=== PATIENT | female | born 1955 | race Caucasian/White ===

== ENCOUNTER 2019-01-21 21:28 | Emergency (ER) | payer OTHER ==
[2019-01-21 21:49] VITALS: BMI 29.4
--- NOTE | 2019-01-21 22:04 | PDOC ---
History of Present Illness - General Chief Complaint: Bite Stated Complaint: FEVER/ANIMAL BITE Time Seen by Provider: 01/21/19 22:04 History Source: Patient - History of Present Illness Initial Comments: 01/21/19 22:23 Chief complaint: Cough Patient is a healthy 63-year-old female who was bitten by her own cat 3 days ago. She was bitten to the right hand. She states that her cat appears well, does not go out and patient started taking penicillin she had in the house. Patient states that the hand has not gotten worse but today she noticed she had a fever.she has no other complaints and she took Motrin 2-1/2 hours ago. Tetanus is up-to-date GENERAL/CONSTITUTIONAL: No fever, weakness. dizziness HEAD, EYES, EARS, NOSE AND THROAT: No change in vision. No ear pain or discharge. No sore throat. CARDIOVASCULAR: No chest pain RESPIRATORY: No shortness of breath or cough GASTROINTESTINAL: No pain, nausea, vomiting, diarrhea or constipation GENITOURINARY: No dysuria MUSCULOSKELETAL: No neck or back pain SKIN: No rash, +cat bite NEUROLOGIC: No headache, vertigo, loss of consciousness, or loss of sensation. GENERAL: The patient is awake, alert, and fully oriented, in no acute distress. HEAD: Normal with no signs of trauma. EYES: Pupils equal, round and reactive to light, sclera anicteric, conjunctiva clear. ENT: pharynx: no erythema, no exudate, uvula midline NECK: supple CHEST: clear, nontender, rr ABD: soft, nontender BACK: no tenderness or signs of injury EXTREMITIES: Hand with scabbed bite unger in the webspace between the first and second fingers, minimal erythema, no signs of abscess, no streaking or swelling. Able to move all fingers, neurovascular intact, no signs of tenosynovitis. Rest of extremities, normal range of motion, no edema. NEUROLOGICAL: Normal speech, normal gait. SKIN: Warm, Dry Past History - Past Medical History Allergies/Adverse Reactions: Allergies Allergy/AdvReac Type Severity Reaction Status Date / Time No Known Allergies Allergy Verified 01/21/19 21:46 COPD: No CHF: No DVT: No - Immunization History Immunization Up to Date: Yes - Suicide/Smoking/Psychosocial Hx Smoking History: Never smoked Information on smoking cessation initiated: No Hx Alcohol Use: No Drug/Substance Use Hx: No *Physical Exam - Vital Signs Last Vital Signs Temp Pulse Resp BP Pulse Ox 100.5 F H 99 H 17 124/62 97 01/21/19 21:44 01/21/19 21:44 01/21/19 21:44 01/21/19 21:44 01/21/19 21:44 ED Treatment Course - LABORATORY CBC & Chemistry Diagram: 01/21/19 22:25 01/21/19 22:25 Medical Decision Making - Medical Decision Making 01/21/19 22:51 63-year-old female, no medical history who was bitten by her 3 days ago, now with fever. Wound does not look cellulitic, there is no streaking, signs of tenosynovitis, lymphangitis. Patient does not appear toxic. Patient will get sepsis screening, Tylenol, IV fluids, x-ray of the hand, and Unasyn Patient evaluated by Dr. Chen who agrees with assessment and plan that if labs are normal, patient can go home on Augmentin, if there is any issues with the labs, elevated white count, lactic acid or concerning things on x-ray, patient will be admitted.signed out to BREA Sweet to follow labs and dispo *DC/Admit/Observation/Transfer Diagnosis at time of Disposition: Cat bite of hand Qualifiers: Encounter type: initial encounter Laterality: right Qualified Code(s): S61.451A - Open bite of right hand, initial encounter; W55.01XA - Bitten by cat , initial encounter - Referrals - Patient Instructions - Post Discharge Activity
[2019-01-21] MEDS ORDERED: ACETAMINOPHEN 325 MG TABLET (FP) PO ONE (22:05)
[2019-01-21] MEDS ORDERED: SODIUM CHLORIDE 250 ML IV STA (22:06)
[2019-01-21] MEDS ORDERED: ACETAMINOPHEN 325 MG TABLET (FP) ONE (22:13)
[2019-01-21] MEDS ORDERED: SODIUM CHLORIDE 1,000 ML IV STA (22:13)
[2019-01-21 22:39] LABS: BASO % 1.4 % (0-2.0); EOS % 0.1 % (0-4.5); HEMATOCRIT 37.6 % (32.4-45.2); HEMOGLOBIN 12.9 GM/dL (10.7-15.3); LYMPH % 21.6 % (8-40); MCH 31.3 pg (25.7-33.7); MCHC 34.3 g/dl (32.0-36.0); MEAN PLT VOLUME 8.1 fl (7.5-11.1); MONO % 8.2 % (3.8-10.2); NEUT % 68.7 % (42.8-82.8); PLATELET COUNT 377 K/MM3 (134-434); RBC 4.13 M/mm3 (3.60-5.2); RDW 13.8 % (11.6-15.6); WHITE BLOOD COUNT 5.2 K/mm3 (4.0-10.0)
[2019-01-21] MEDS ORDERED: AMPICILLIN NA/SULBACTAM NA 3 GM in SODIUM CHLORIDE 100 ML IVPB ONE (22:50)
[2019-01-21 23:10] LABS: ALBUMIN 3.6 g/dl (3.4-5.0); BILIRUBIN,TOTAL 0.4 mg/dL (0.2-1); BLOOD UREA NITROGEN 13.4 mg/dL (7-18); CALCIUM 9.4 mg/dL (8.5-10.1); CREATININE 0.9 mg/dL (0.55-1.3); POTASSIUM 3.8 mmol/L (3.5-5.1); TOT PROT 7.3 g/dl (6.4-8.2)
--- NOTE | 2019-01-22 00:04 | PDOC ---
*Physical Exam - Vital Signs Last Vital Signs Temp Pulse Resp BP Pulse Ox 100.5 F H 99 H 17 124/62 97 01/21/19 21:44 01/21/19 21:44 01/21/19 21:44 01/21/19 21:44 01/21/19 21:44 ED Treatment Course - LABORATORY CBC & Chemistry Diagram: 01/21/19 22:25 01/21/19 22:25 - ADDITIONAL ORDERS Additional order review: Laboratory Results 01/21/19 01/21/19 22:25 22:25 Sodium 139 Potassium 3.8 Chloride 106 Carbon Dioxide 29 Anion Gap 5 L BUN 13.4 Creatinine 0.9 Est GFR (CKD-EPI)AfAm 78.87 Est GFR (CKD-EPI)NonAf 68.05 Random Glucose 109 H Lactic Acid 0.7 Calcium 9.4 Total Bilirubin 0.4 AST 33 ALT 66 H Alkaline Phosphatase 103 Total Protein 7.3 Albumin 3.6 01/21/19 22:25 RBC 4.13 MCV 91.0 MCHC 34.3 RDW 13.8 MPV 8.1 Neutrophils % 68.7 Lymphocytes % 21.6 Monocytes % 8.2 Eosinophils % 0.1 Basophils % 1.4 - Medications Given in the ED: ED Medications Discontinued Medications Generic Name Dose Route Start Last Admin Trade Name Freq PRN Reason Stop Dose Admin Acetaminophen 650 mg 01/21/19 22:05 01/21/19 22:36 Tylenol - PO 01/21/19 22:06 650 mg ONCE ONE Administration Sodium Chloride 250 mls @ 250 mls/hr 01/21/19 22:06 01/21/19 22:37 Normal Saline - IV 01/21/19 23:05 Not Given ASDIR STA Sodium Chloride 1,000 mls @ 1,000 mls/hr 01/21/19 22:13 01/21/19 22:36 Normal Saline - IV 01/21/19 23:12 1,000 mls/hr ASDIR STA Administration Ampicillin Sodium/Sulbactam 100 mls @ 200 mls/hr 01/21/19 22:50 01/21/19 23: 25 Sodium 3 gm/ Sodium Chloride IVPB 01/21/19 23:19 200 mls/hr ONCE ONE Administration Medical Decision Making - Medical Decision Making 01/22/19 00:00 Patient with endorsed to me to labs and disposition. Patient seen and evaluated. She is in no acute distress. No cellulitis noted in the hands. Patient received Unasyn IV. Labs reviewed, there are no acute findings. I discussed the physical exam findings, ancillary test results and final diagnoses with the patient. I answered all of the patient's questions. The patient was satisfied with the care received and felt comfortable with the discharge plan and treatment plan. The Patient agrees to follow up with the primary care physician within 24-72 hours. 01/22/19 00:25 Selected Entries 01/22/19 00:14 Temperature 98.3 F Pulse Rate [ 68 Right Radial] Respiratory 16 Rate Blood Pressure 110/49 L [Left Arm] O2 Sat by Pulse 98 Oximetry (%) *DC/Admit/Observation/Transfer Diagnosis at time of Disposition: Cat bite of hand Qualifiers: Encounter type: initial encounter Laterality: right Qualified Code(s): S61.451A - Open bite of right hand, initial encounter - Discharge Dispostion Disposition: HOME Condition at time of disposition: Stable - Prescriptions Prescriptions: Amoxicillin/Potassium Clav [Augmentin 875-125 Tablet] 1 each PO BID #14 tablet - Referrals - Patient Instructions Printed Discharge Instructions: DI for Animal Bites Additional Instructions: Your Discharge Instructions: You must call primary care physician within 24 hours to arrange follow-up. Return to the Emergency Department with any new, persistent or worsening symptoms, for fever, chills, SOB, dizziness or any other concerning changes that may occur. Take Antibiotics as prescribed. - Post Discharge Activity Forms/Work/School Notes: Back to Work
[2019-01-22 00:15] VITALS: BP 110/49; PULSE 68; TEMP 98.3
== END 2019-01-22 00:34 | disposition home or self-care (01) ==
LOC: JER 21:28
PROC: 3E0337Z Introduction of Electrolytic and Water Balance Substance into Peripheral Vein, Percutaneous Approach (ICD-10-PCS; principal; 2019-01-21)
PROC: 3E03329 Introduction of Other Anti-infective into Peripheral Vein, Percutaneous Approach (ICD-10-PCS; 2019-01-21)
DX: S61.451A Open bite of right hand, initial encounter (principal); W55.01XA Bitten by cat, initial encounter; Y93.89 Activity, other specified; Y92.018 Other place in single-family (private) house as the place of occurrence of the external cause; Y99.8 Other external cause status
CPT/HCPCS: 36415; 73130-TC-RT-FY; 80053; 83605; 85025; 87040; 99282-25; J7030

== ENCOUNTER 2020-11-26 08:33 | Day surgery (SDC) | payer OTHER ==
[2020-11-25 15:13] VITALS: BMI 28.8
[2020-11-26 10:39] VITALS: BP 137/58; PULSE 69; TEMP 97
== END 2020-11-26 10:40 | disposition home or self-care (01) ==
LOC: FASU-ENDO 08:33
PROVIDERS: ATTEND Internal Medicine Gastroenterology
PROC: 0DBN8ZX Excision of Sigmoid Colon, Via Natural or Artificial Opening Endoscopic, Diagnostic (ICD-10-PCS; principal; 2020-11-26 09:50)
DX: Z12.11 Encounter for screening for malignant neoplasm of colon (principal); D12.5 Benign neoplasm of sigmoid colon